=== PATIENT | male | born 1985 | race American Indian/Alaskan Native ===

== ENCOUNTER 2021-02-05 19:13 | Emergency (ER) | payer OTHER ==
[2021-02-05 20:37] VITALS: BP 115/77
[2021-02-05] MEDS ORDERED: ACETAMINOPHEN 500 MG TAB PO ONE (22:40)
[2021-02-05] MEDS ORDERED: IBUPROFEN 600 MG TAB PO ONE (22:40)
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
== END 2021-02-05 23:30 | disposition home or self-care (01) ==
LOC: ED 19:13
DX: S63.501A Unspecified sprain of right wrist, initial encounter (principal); M62.838 Other muscle spasm; J45.909 Unspecified asthma, uncomplicated; Z21 Asymptomatic human immunodeficiency virus [HIV] infection status; Z88.0 Allergy status to penicillin; Z79.899 Other long term (current) drug therapy; V49.49XA Driver injured in collision with other motor vehicles in traffic accident, initial encounter; Y92.410 Unspecified street and highway as the place of occurrence of the external cause; Y93.89 Activity, other specified; Y99.8 Other external cause status
CPT/HCPCS: 72040; 99283